=== PATIENT | female | born 1970 | race Caucasian/White ===

== ENCOUNTER 2024-05-25 14:56 | Emergency (ER) | payer BC ==
[2024-05-25] MEDS ORDERED: Dexamethasone 10 MG/ML VIAL ONE (16:12)
[2024-05-25] MEDS ORDERED: Ketorolac Tromethamine 30 MG (1 mL) VIAL ONE (16:12)
== END 2024-05-25 17:41 | disposition home or self-care (01) ==
LOC: CSHERS 14:56
DX: G50.0 Trigeminal neuralgia (principal); H66.91 Otitis media, unspecified, right ear
CPT/HCPCS: 96372; 99283; J1100; J1885